=== PATIENT | female | born 1975 | race Hispanic/Latino ===

== ENCOUNTER 2021-03-25 08:03 | Outpatient (CLI) | payer OTHER ==
[2021-03-25] MEDS ORDERED: Iopamidol 370 76% 100 ML VIAL ONE (09:23)
== END 2021-03-25 08:04 | disposition home or self-care (01) ==
LOC: BICCT 08:03
PROVIDERS: ATTEND Internal Medicine Gastroenterology
DX: R10.31 Right lower quadrant pain (principal); K76.89 Other specified diseases of liver
CPT/HCPCS: 74177; Q9967